=== PATIENT | male | born 1955 | race Caucasian/White ===

== ENCOUNTER → 2017-12-19 | Outpatient (CLI) | payer OTHER ==
--- NOTE | 2017-12-19 17:05 | Diagnostic Imaging Report ---
PROCEDURE:X-RAY ABDOMEN - [facility] COMPARISON:[facility] 06/09/2013. CT abdomen and pelvis 08/04/2013. INDICATIONS:RENAL STONES FINDINGS: There are no dilated loops of bowel to suggest obstruction. There are no masses. There is no evidence of free air. No acute osseous abnormalities are present. 0.4 cm and 0.5 cm linear stones in lower pole of the left kidney remain unchanged. Previous right renal stones are no longer present. CONCLUSION: 1. Stable 2 small stones in the inferior pole of left kidney. 2. No right renal stones. Dictated by: Brandt Matias M.D. on 12/19/2017 at 17:06 Electronically approved by: Brandt Matias M.D. on 12/19/2017 at 17:06
== END ==
LOC: RAD 16:12
PROVIDERS: ATTEND Urology
DX: N20.0 Calculus of kidney (principal)
CPT/HCPCS: 74018